=== PATIENT | female | born 1955 | race Caucasian/White ===

== ENCOUNTER 2022-09-06 15:32 | Outpatient (CLI) | payer MEDICARE, SELFPAY | END 2022-09-06 15:33 | disposition home or self-care (01) | PROVIDERS: PCP Emergency Medicine; Visit Provider Emergency Medicine | DX: L03.90 Cellulitis, unspecified (principal) | CPT/HCPCS: 80048; 86140; 87070 ==

== ENCOUNTER 2022-09-11 15:30 | Outpatient (CLI) | payer OTHER, SELFPAY | END 2022-09-11 15:31 | disposition home or self-care (01) | LOC: LKVREF 15:38 | PROVIDERS: PCP Emergency Medicine; Visit Provider Emergency Medicine | DX: L03.90 Cellulitis, unspecified (principal) | CPT/HCPCS: 87070 ==

== ENCOUNTER 2022-09-26 14:31 | Outpatient (CLI) | payer OTHER, SELFPAY | END 2022-09-26 14:32 | disposition home or self-care (01) | PROVIDERS: PCP Emergency Medicine; Visit Provider Emergency Medicine | DX: L03.90 Cellulitis, unspecified (principal) | CPT/HCPCS: 86140; 87070; 87106 ==

== ENCOUNTER 2022-12-25 14:34 | Outpatient (CLI) | payer MEDICARE, SELFPAY | END 2022-12-25 14:35 | disposition home or self-care (01) | LOC: LKVREF 14:36 | PROVIDERS: PCP Emergency Medicine; Visit Provider Emergency Medicine | DX: L03.90 Cellulitis, unspecified (principal); R78.81 Bacteremia | CPT/HCPCS: 87040 ==

== ENCOUNTER 2023-01-03 14:30 | Outpatient (CLI) | payer MEDICARE, SELFPAY | END 2023-01-03 14:31 | disposition home or self-care (01) | PROVIDERS: PCP Emergency Medicine; Visit Provider Emergency Medicine | DX: L03.90 Cellulitis, unspecified (principal) | CPT/HCPCS: 86140; 87040 ==

== ENCOUNTER 2023-01-15 12:40 | Outpatient (CLI) | payer MEDICARE, SELFPAY | END 2023-01-15 12:41 | disposition home or self-care (01) | LOC: WOUND 12:40 | PROVIDERS: PCP Emergency Medicine; Visit Provider Nurse Practitioner Family | DX: I87.312 Chronic venous hypertension (idiopathic) with ulcer of left lower extremity (principal); L97.822 Non-pressure chronic ulcer of other part of left lower leg with fat layer exposed; R41.9 Unspecified symptoms and signs involving cognitive functions and awareness | CPT/HCPCS: 97597 ==

== ENCOUNTER 2023-06-11 12:59 | Outpatient (CLI) | payer MEDICARE, SELFPAY | END 2023-06-11 13:00 | disposition home or self-care (01) | PROVIDERS: PCP Emergency Medicine; Visit Provider Emergency Medicine | DX: L03.90 Cellulitis, unspecified (principal) | CPT/HCPCS: 86140; 87070; 87186 ==

== ENCOUNTER 2023-07-09 13:16 | Outpatient (CLI) | payer MEDICARE, SELFPAY | END 2023-07-09 13:17 | disposition home or self-care (01) | PROVIDERS: PCP Emergency Medicine; Visit Provider Emergency Medicine | DX: Z00.00 Encounter for general adult medical examination without abnormal findings (principal); Z13.6 Encounter for screening for cardiovascular disorders; Z68.29 Body mass index [BMI] 29.0-29.9, adult | CPT/HCPCS: 80053; 80061 ==

== ENCOUNTER 2023-07-30 12:34 | Outpatient (CLI) | payer MEDICARE, SELFPAY | END 2023-07-30 12:35 | disposition home or self-care (01) | LOC: WOUND 12:34 | PROVIDERS: PCP Emergency Medicine; Visit Provider Nurse Practitioner Family | DX: I87.312 Chronic venous hypertension (idiopathic) with ulcer of left lower extremity (principal); I87.2 Venous insufficiency (chronic) (peripheral); L97.822 Non-pressure chronic ulcer of other part of left lower leg with fat layer exposed; I89.0 Lymphedema, not elsewhere classified; R41.9 Unspecified symptoms and signs involving cognitive functions and awareness | CPT/HCPCS: 97602; G0463 ==